=== PATIENT | female | born 1980 ===

== ENCOUNTER 2023-06-10 11:19 | Outpatient (CLI) | payer OTHER | END 2023-06-10 13:00 | disposition home or self-care (01) | LOC: PRENATAL 11:19 | PROVIDERS: ATTEND Obstetrics & Gynecology Maternal & Fetal Medicine | DX: O36.80X0 Pregnancy with inconclusive fetal viability, not applicable or unspecified (principal); Z36.9 Encounter for antenatal screening, unspecified; O09.529 Supervision of elderly multigravida, unspecified trimester; O10.019 Pre-existing essential hypertension complicating pregnancy, unspecified trimester; Z3A.11 11 weeks gestation of pregnancy ==

== ENCOUNTER → 2023-08-12 | Outpatient (CLI) | payer OTHER | END | disposition home or self-care (01) | LOC: PRENATAL 08:05 | PROVIDERS: ATTEND Obstetrics & Gynecology Maternal & Fetal Medicine | DX: O35.3XX0 Maternal care for (suspected) damage to fetus from viral disease in mother, not applicable or unspecified (principal); Z14.8 Genetic carrier of other disease; O09.529 Supervision of elderly multigravida, unspecified trimester; O10.019 Pre-existing essential hypertension complicating pregnancy, unspecified trimester; Z3A.20 20 weeks gestation of pregnancy ==

== ENCOUNTER 2023-10-07 08:44 | Outpatient (CLI) | payer OTHER | END 2023-10-07 08:45 | disposition home or self-care (01) | LOC: PRENATAL 08:44 | PROVIDERS: ATTEND Obstetrics & Gynecology Maternal & Fetal Medicine | DX: O26.849 Uterine size-date discrepancy, unspecified trimester (principal); Z14.8 Genetic carrier of other disease; O09.529 Supervision of elderly multigravida, unspecified trimester; O10.019 Pre-existing essential hypertension complicating pregnancy, unspecified trimester; O24.419 Gestational diabetes mellitus in pregnancy, unspecified control; Z3A.28 28 weeks gestation of pregnancy ==

== ENCOUNTER 2023-11-04 08:49 | Outpatient (CLI) | payer OTHER ==
[~2023-11-04 08:49] MED LIST: ALCOHOL PADS1 EACH TOP; HUMULIN N100 UNIT/2 SUBCUTANEO; HUMULIN R100 UNIT/1 SUBCUTANEO; INSULIN SYRING1 EA29 SUBCUTANEO
== END 2023-11-04 08:50 | disposition home or self-care (01) ==
LOC: PRENATAL 08:49
PROVIDERS: ATTEND Obstetrics & Gynecology Maternal & Fetal Medicine
DX: O26.849 Uterine size-date discrepancy, unspecified trimester (principal); O36.8199 Decreased fetal movements, unspecified trimester, other fetus; O09.529 Supervision of elderly multigravida, unspecified trimester; O10.019 Pre-existing essential hypertension complicating pregnancy, unspecified trimester; O24.419 Gestational diabetes mellitus in pregnancy, unspecified control; Z3A.33 33 weeks gestation of pregnancy

== ENCOUNTER 2023-12-02 08:48 | Outpatient (CLI) | payer OTHER | END 2023-12-02 08:51 | disposition home or self-care (01) | LOC: PRENATAL 08:48 | PROVIDERS: ATTEND Obstetrics & Gynecology Maternal & Fetal Medicine | DX: O26.849 Uterine size-date discrepancy, unspecified trimester (principal); O36.8199 Decreased fetal movements, unspecified trimester, other fetus; O09.529 Supervision of elderly multigravida, unspecified trimester; O10.019 Pre-existing essential hypertension complicating pregnancy, unspecified trimester; O24.419 Gestational diabetes mellitus in pregnancy, unspecified control; Z3A.36 36 weeks gestation of pregnancy ==

== ENCOUNTER 2023-12-09 18:19 | Inpatient (IN) | payer OTHER ==
[~2023-12-09] VITALS: Ht 152.4 cm; Wt 3.2 kg
[2023-12-09 20:45] LABS: URINE APPEARANCE Clear; URINE BILIRRUBIN Negative (NEGATIVE); URINE BLOOD Negative; URINE COLOR Yellow; URINE GLUCOSE Negative (NEGATIVE); URINE LEUKOCYTE Negative; URINE NITRATE Negative; URINE PROTEIN Negative (NEGATIVE); URINE UROBILINOGEN 0.2 E.U./dl
[2023-12-09 20:46] LABS: URINE BACTERIA 18.8 uL (0.0-1933); URINE EPITHELIAL CELLS 3.2 uL (0.0-38.8)
[2023-12-09 20:50] LABS: URINE RBC 0.5 uL (0.0-20.8)
[2023-12-09 20:51] LABS: HEMATOCRIT 35.6 % (36.0-45.00); HEMOGLOBIN 12.4 g/dL (12.0-15.00); MEAN CELL VOLUME 87.9 fL (80.00-100.00); MEAN CORPUSCULAR HEMOGLOBIN 30.6 pg (27.00-32.0); MEAN CORPUSCULAR HGB CONC 34.8 g/dl (32.0-36.0); PLATELET COUNT 205 K/uL (150-450); RED BLOOD COUNT 4.05 M/uL (4.00-6.00); RED CELL DISTRIBUTION WIDTH 17.8 % (11.5-14.5)
[2023-12-09] MEDS ORDERED: IRON236 MG PO (20:55)
[2023-12-09] MEDS ORDERED: PRENATAL TABLE1 EAC4 PO (20:56)
[2023-12-09] MEDS ORDERED: AMPICILLIN SODIUM 2,000 MG VIAL IV ONE (21:00)
[2023-12-09] MEDS ORDERED: DEXTROSE 5 % AND 0.9 % NACL 1,000 ML IV SCH (21:00)
[2023-12-09] MEDS ORDERED: 0.9 % SODIUM CHLORIDE 1,000 ML IV SCH (21:00)
[2023-12-09 21:01] LABS: INR < 0.93; PARTIAL THROMBOPLASTIN TIME 25.2 SECONDS (22.0-34.0); PROTHROMBIN TIME 9.8 SECONDS (9.0-11.5)
[2023-12-09 21:14] LABS: ALBUMIN 2.9 gm/dL (3.4-5.0); BILIRUBIN TOTAL 0.29 mg/dL (0.3-1.2); CALCIUM 9.1 mg/dL (8.5-10.1); CREATININE SERUM 0.79 mg/dL (0.55-1.02); GFR 79.81; GLOBULINA 3.5 G/DL (2.4-3.5); POTASSIUM 3.76 mEq/L (3.5-5.1); T4 FREE 0.76 NG/ML (0.76-1.46); TOTAL PROTEIN 6.4 gm/dL (6.4-8.2)
[2023-12-10] MEDS ORDERED: AMPICILLIN SODIUM 1,000 MG VIAL IV SCH (01:00)
[2023-12-10] MEDS ORDERED: RINGERS SOLUTION,LACTATED 1,000 ML IV SCH (09:48)
[2023-12-10] MEDS ORDERED: INSULIN NPH HUMAN ISOPHANE 1,000 UNITS/10 ML UNITS SUBCUTANEO SCH ×2 (14:02→21:00)
[2023-12-10] MEDS ORDERED: INSULIN REGULAR, HUMAN 1,000 UNIT/10 ML UNITS SUBCUTANEO SCH (16:00)
[2023-12-11] MEDS ORDERED: INSULIN NPH HUMAN ISOPHANE 1,000 UNITS/10 ML UNITS SUBCUTANEO SCH (07:30)
[2023-12-11] MEDS ORDERED: INSULIN REGULAR, HUMAN 1,000 UNIT/10 ML UNITS SUBCUTANEO SCH (07:30)
[2023-12-11] MEDS ORDERED: RINGERS SOLUTION,LACTATED 1,000 ML IV SCH (09:48)
[2023-12-11] MEDS ORDERED: MISOPROSTOL 25 MCG/4 ML GEL.W.APPL ONE (18:57)
[2023-12-11] MEDS ORDERED: MISOPROSTOL 25 MCG/4 ML GEL.W.APPL VAG ONE (19:00)
[2023-12-11] MEDS ORDERED: DEXTROSE 5 % AND 0.9 % NACL 1,000 ML IV ONE (22:30)
[2023-12-12] MEDS ORDERED: MORPHINE SULFATE 4 MG/ML VIAL IV ONE (01:00)
[2023-12-12] MEDS ORDERED: MISOPROSTOL 25 MCG TABLET VAG ONE (08:00)
[2023-12-12] MEDS ORDERED: ERYTHROMYCIN BASE 3.5 GM OINT...G. OP ONE (14:25)
[2023-12-12] MEDS ORDERED: OXYTOCIN 10 UNITS/ML VIAL ONE ×2 (14:25)
[2023-12-12] MEDS ORDERED: TRAMADOL HCL 50 MG TABLET PO PRN (15:45)
[2023-12-12] MEDS ORDERED: OxyCODONE HCL/APAP UD (PERCOCET) PO PRN (15:45)
[2023-12-12] MEDS ORDERED: ERYTHROMYCIN BASE 1 GM TUBE OP SCH (15:45)
[2023-12-12] MEDS ORDERED: OXYTOCIN 1,000 ML IV SCH (15:45)
[2023-12-12] MEDS ORDERED: CHLORHEXIDINE GLUCONATE 120 ML BOTTLE TP SCH (15:45)
[2023-12-12] MEDS ORDERED: RINGERS SOLUTION,LACTATED 1,000 ML IV SCH (15:45)
[2023-12-12] MEDS ORDERED: DOCUSATE SODIUM 100MG CAP PO SCH (17:00)
[2023-12-12] MEDS ORDERED: ONDANSETRON HCL 2 MG/ML VIAL ONE (18:32)
[2023-12-12 18:41] LABS: HEMATOCRIT 37.2 % (36.0-45.00); HEMOGLOBIN 12.7 g/dL (12.0-15.00); MEAN CELL VOLUME 89.3 fL (80.00-100.00); MEAN CORPUSCULAR HEMOGLOBIN 30.5 pg (27.00-32.0); MEAN CORPUSCULAR HGB CONC 34.1 g/dl (32.0-36.0); PLATELET COUNT 180 K/uL (150-450); RED BLOOD COUNT 4.17 M/uL (4.00-6.00); RED CELL DISTRIBUTION WIDTH 17.7 % (11.5-14.5)
[2023-12-12] MEDS ORDERED: AMPICILLIN SODIUM 1,000 MG VIAL ONE (18:58)
[2023-12-12 19:28] LABS: ABG PH 7.031 (7.35-7.45); ABG pCO2 73.4 mmHg (35-45)
[2023-12-12 19:29] LABS: ABG PO2 19.7 mmHg (80-100); BASE EXCESS -13.1 mmol/l; Tco2 21.3 mmol/l; o2 21 %
[2023-12-12 21:22] LABS: HEMATOCRIT 36.7 % (36.0-45.00); HEMOGLOBIN 12.4 g/dL (12.0-15.00); MEAN CELL VOLUME 86.8 fL (80.00-100.00); MEAN CORPUSCULAR HEMOGLOBIN 29.3 pg (27.00-32.0); MEAN CORPUSCULAR HGB CONC 33.8 g/dl (32.0-36.0); PLATELET COUNT 183 K/uL (150-450); RED BLOOD COUNT 4.23 M/uL (4.00-6.00); RED CELL DISTRIBUTION WIDTH 17.5 % (11.5-14.5)
[2023-12-13] MEDS ORDERED: SIMETHICONE 125 MG CAPSULE PO SCH (09:00)
[2023-12-15] MEDS ORDERED: Tylenol #3 PO (08:34)
== END 2023-12-15 14:47 | disposition home or self-care (01) | DRG 784 ==
LOC: OB/GYN 18:19 → LDR 18:19 → OB/GYN 12-10 16:35
PROVIDERS: ADMIT Student in an Organized Health Care Education/Training Program; ATTEND Student in an Organized Health Care Education/Training Program
PROC: 4A1HXCZ Monitoring of Products of Conception, Cardiac Rate, External Approach (ICD-10-PCS; 2023-12-09)
PROC: BY4FZZZ Ultrasonography of Third Trimester, Single Fetus (ICD-10-PCS; 2023-12-10)
PROC: 3E0P7VZ Introduction of Hormone into Female Reproductive, Via Natural or Artificial Opening (ICD-10-PCS; 2023-12-11)
PROC: 3E033VJ Introduction of Other Hormone into Peripheral Vein, Percutaneous Approach (ICD-10-PCS; 2023-12-12)
PROC: 0UB70ZZ Excision of Bilateral Fallopian Tubes, Open Approach (ICD-10-PCS; 2023-12-12)
PROC: 10D00Z1 Extraction of Products of Conception, Low, Open Approach (ICD-10-PCS; principal; 2023-12-12 17:45)
DX: O36.8330 Maternal care for abnormalities of the fetal heart rate or rhythm, third trimester, not applicable or unspecified (principal); O10.02 Pre-existing essential hypertension complicating childbirth; O36.8130 Decreased fetal movements, third trimester, not applicable or unspecified; O26.843 Uterine size-date discrepancy, third trimester; O24.424 Gestational diabetes mellitus in childbirth, insulin controlled; Z3A.37 37 weeks gestation of pregnancy; Z37.0 Single live birth; Z30.2 Encounter for sterilization; Z20.822 Contact with and (suspected) exposure to COVID-19